=== PATIENT | male | born 1990 | race Caucasian/White ===

== ENCOUNTER → 2018-10-13 | Outpatient (CLI) | payer OTHER ==
--- NOTE | 2018-10-13 16:49 | PCVCIMAG ---
APPROVED REPORT Study performed: 10/13/2018 15:29:05 EXAM: Comprehensive 2D, Doppler, and color-flow Echocardiogram Patient Location: Echo lab Status: routine BSA: 2.03 HR: 93 bpmBP: 152/90 mmHg Rhythm: NSR Other Information Study Quality: Good Risk Factors: Cardiac Risk Factors: Hyperlipidemia Indications SVT Elevated BP without HTN 2D Dimensions IVSd: 8.05 (7-11mm)LVOT Diam: 22.00 (18-24mm) LVDd: 44.77 mm PWd: 8.90 (7-11mm)Ascending Ao: 26.63 (22-36mm) LVDs: 29.53 (25-40mm) Left Atrium: 29.94 (27-40mm) Aortic Root: 29.75 mm LV Single Plane 4CH: 56.78 % LV Single Plane 2CH: 68.44 % Volumes Left Atrial Volume (Systole) Single Plane 4CH: 42.53 mLSingle Plane 2CH: 28.64 mL LA ESV Index: 18.00 mL/m2 Aortic Valve AoV Peak Juma.: 1.25 m/s AO Peak Gr.: 6.25 mmHgLVOT Max P.43 mmHg LVOT Max V: 1.17 m/s ELYSIA Vmax: 3.65 cm2 Mitral Valve E/A Ratio: 1.4 MV Decel. Time: 173.46 ms MV E Max Juma.: 0.99 m/s MV A Juma.: 0.72 m/s IVRT: 48.44 ms TDI E/Lateral E': 8.25E/Medial E': 6.60 Medial E' Juma.: 0.15 m/s Lateral E' Juma.: 0.12 m/s Pulmonary Valve PV Peak Juma.: 1.37 m/sPV Peak Gr.: 7.48 mmHg Pulmonary Vein P Vein S: 0.44 m/sP Vein A: 0.34 m/s P Vein D: 0.63 m/sP Vein A Dur.: 73.8 msec P Vein S/D Ratio: 0.70 Tricuspid Valve RAP Estimate: 7.00 mmHg Left Ventricle The left ventricle is normal size. There is normal LV segmental wall motion. There is normal left ventricular wall thickness. Left ventricular systolic function is normal. The left ventricular ejection fraction is within the normal range. LVEF is 60-65%. The left ventricular diastolic function is normal. Right Ventricle The right ventricle is normal size. The right ventricular systolic function is normal. Atria The left atrium size is normal. The right atrium size is normal. Aortic Valve The aortic valve is normal in structure. No aortic regurgitation is present. There is no aortic valvular stenosis. Mitral Valve The mitral valve is normal in structure. There is no mitral valve regurgitation noted. No evidence of mitral valve stenosis. Tricuspid Valve The tricuspid valve is normal in structure. Trace tricuspid regurgitation. Unable to assess PA pressure. Pulmonic Valve The pulmonary valve is normal in structure. There is no pulmonic valvular regurgitation. Great Vessels The aortic root is normal in size. IVC is normal in size and collapses >50% with inspiration. Pericardium There is no pericardial effusion. <Conclusion> 1. Normal echocardiogram with Doppler. EF 65% 2. No pericardial effusion
--- NOTE | 2018-10-13 16:56 | PCVCIMAG ---
APPROVED REPORT Patient Location: Echo lab-[facility] TEST Room #: 1 Stress Nurse: Brittanie Nance RN INDICATIONS: SVT The patient exercised according to the SHLOMO protocol for 11:39 mins; achieving a work level of 13.4 METS. The resting heart rate of 93 bpm elvis to a maximum heart rate of 193 bpm. This value represents 99% of the maximal, age-predicted heart rate. The resting blood pressure of 152/90 mmHg, elvis to a maximum blood pressure of 202/90 mmHg. The exercise test was stopped due to dyspnea and fatigue. EKG: Sinus rhythm normal tracing Stress EKG: No dysrhythmias. No diagnostic ischemic electrocardiographic changes. Conclusion 1. Maximal treadmill exercise study negative for exercise-induced ischemia. 2. No subjective signs of ischemia. No dysrhythmias. Hypertensive response to exercise. 3. The study is associated with good exercise capacity (13.4 METS) With Demetrius's history of hypertension and tachycardia, I have recommended starting Cardizem CD 240 mg daily. Prescription was given.
== END | disposition home or self-care (01) ==
LOC: PCVCIMAG 15:31
PROVIDERS: ATTEND Internal Medicine
DX: I47.1 Supraventricular tachycardia (principal); Z88.5 Allergy status to narcotic agent
CPT/HCPCS: 93017; 93306